=== PATIENT | male | born 1975 | race Caucasian/White ===

== ENCOUNTER 2018-08-06 08:21 | Emergency (ER) | payer OTHER ==
[2018-08-06] MEDS ORDERED: Adacel (T-DAP) 0.5 ML SYRINGE ONE (09:05)
[2018-08-06] MEDS ORDERED: Lidocaine 1% w/Epinephrine 1:100K 20 ML VIAL ONE (10:08)
--- NOTE | 2018-08-06 11:07 | CT ---
CT Cervical Spine WO Con HISTORY: Neck injury with neck pain COMPARISON: None. FINDINGS: The vertebral bodies are normal in height. Disc spaces appear well preserved and facets are in normal alignment. There is no evidence of canal or foraminal stenosis. There is no CT evidence of fracture. The lung apices are clear. IMPRESSION: No CT evidence of fracture the cervical spine.
[2018-08-06] MEDS ORDERED: Bacitracin 1 PK ONE (12:25)
== END 2018-08-06 12:42 | disposition home or self-care (01) ==
LOC: ERS 08:21
DX: S01.81XA Laceration without foreign body of other part of head, initial encounter (principal); W22.8XXA Striking against or struck by other objects, initial encounter
CPT/HCPCS: 12015; 72125; 90471; 90715; J2001

== ENCOUNTER 2018-08-13 09:53 | Emergency (ER) | payer OTHER | END 2018-08-13 10:18 | disposition home or self-care (01) | LOC: ERS 09:53 | DX: S01.01XD Laceration without foreign body of scalp, subsequent encounter (principal); X58.XXXD Exposure to other specified factors, subsequent encounter ==

== ENCOUNTER → 2022-05-14 | Outpatient (CLI) | payer BC | LOC: SLEEPLAB 18:00 | PROVIDERS: ATTEND Family Medicine | DX: G47.33 Obstructive sleep apnea (adult) (pediatric) (principal); R53.83 Other fatigue; E66.9 Obesity, unspecified; R06.83 Snoring; Z68.35 Body mass index [BMI] 35.0-35.9, adult; G47.31 Primary central sleep apnea | CPT/HCPCS: 95800 ==

== ENCOUNTER 2022-07-21 19:30 | Outpatient (CLI) | payer BC | END 2022-07-21 19:31 | disposition home or self-care (01) | LOC: SLEEPLAB 19:30 | PROVIDERS: ATTEND Family Medicine | DX: G47.33 Obstructive sleep apnea (adult) (pediatric) (principal); G47.31 Primary central sleep apnea; R53.83 Other fatigue; R06.83 Snoring | CPT/HCPCS: 95811 ==